=== PATIENT | female | born 1975 | race Caucasian/White ===

== ENCOUNTER 2021-04-12 08:35 | Day surgery (SDC) | payer OTHER ==
[2021-04-12 09:30] VITALS: O2SAT 100
[2021-04-12] MEDS ORDERED: Ringers Lactate 1,000 ML IV ONE (09:37)
[2021-04-12] MEDS ORDERED: CELECOXIB 100 MG CAPSULE ONE (09:47)
[2021-04-12] MEDS ORDERED: ACETAMINOPHEN 500 MG TAB ONE (09:48)
[2021-04-12] MEDS ORDERED: FENTANYL CITR 100 MCG/2 ML ONE (10:27)
[2021-04-12] MEDS ORDERED: LIDOCAINE 2% MPF 5 ML VIAL ONE (10:27)
[2021-04-12] MEDS ORDERED: MIDAZOLAM HCL 2 MG/2 ML INJ ONE (10:27)
[2021-04-12] MEDS ORDERED: propofoL 200 MG/20 ML VIAL IV ONE (10:27)
[2021-04-12] MEDS ORDERED: LIDOCAINE 1% W/EPI 1:100,000 MDV 20 ML VIAL ONE (10:56)
[2021-04-12] MEDS ORDERED: ONDANSETRON 4 MG/2 ML VIAL ONE (10:57)
[2021-04-12] MEDS ORDERED: dexAMETHasone 10 MG/ML VIAL ONE (10:57)
[2021-04-12] MEDS ORDERED: HYDROCODONE/APAP 5/325 MG TAB PO PRN (11:28)
--- NOTE | 2021-04-12 11:34 | P.BOP ---
Preoperative diagnosis: pelvic pain thickened endometrium AUB-L Postoperative diagnosis: same and endometrial polyps Primary procedure: Hysteroscopy polypectomy d/c with myosure lite Assistant Finance Director: NONE,NONE Estimated blood loss: min Specimen: EMC and polyps Findings: thickned polypoid endometrium, polyps x2, deficit 300 NS Anesthesia: General Complications: None Transferred to: Recovery Room Condition: Good
[2021-04-12] MEDS ORDERED: CEFAZOLIN SODIUM 1 GM/VIAL ONE (11:35)
[2021-04-12] MEDS ORDERED: NS 0.9% VIAL 20 ML ONE (11:37)
[2021-04-12] MEDS ORDERED: KETOROLAC 30 MG/ML INJ ONE (11:44)
[2021-04-12 12:35] VITALS: BP 102/63; TEMP 97.7
[2021-04-12] MEDS ORDERED: HYDROCODONE/APAP 5/325 MG TAB ONE (12:36)
--- NOTE | 2021-04-12 13:48 | OP ---
Date of Procedure: 04/12/2021 Surgeon: Vandana Felipe MD Preoperative Diagnoses: Pelvic pain, thickened endometrium, AUB-L. Postoperative Diagnoses: Pelvic pain, thickened endometrium, AUB-L and endometrial polyps. Procedures Performed: Hysteroscopy, polypectomy, dilation and curettage with MyoSure LITE. Anesthesia: General with LMA. Specimens: Endometrial curettings and polyps. Findings: Thickened endometrium with polypoid appearance. Two polyps were removed. The fluid defic it was 300. Normal saline was used for infusion. Complications: No complications. Drains: No drains. Condition: Stable. Indications: The patient is a 46-year-old female with pelvic pain, bleeding, fibroids. Evaluated wi th an ultrasound. Had significantly thickened endometrium with question of possible polyps, so neede d removal and sampling before a definitive plan is made either for an ablation or hysterectomy, so amelia connelly was consented and brought to the hospital. Description Of Procedure: After reconsenting her in the preoperative, taken back to the operating ro om. She was placed in the supine fashion and general anesthesia was given with LMA. The patient was repositioned using Bay stirrups in a dorsal lithotomy position. Vulva, vagina, and perineum were prepped and draped in a sterile fashion. Speculum was placed to expose the cervix. Anterior lip was grasped with 2 Allis clamps. Attempted to enter the cervical canal with the MyoSure scope, however, this was significantly larger for the caliber of the cervix without dilation. The cervix was dilate d to 18 and 20-Puerto Rican. Then was able to pass the scope. After visualizing the cavity and the production assembly supervisor ior wall with thickened endometrium and 2 polyps, the scope was left in the cavity. The suction kenia sanjay was removed and the MyoSure LITE device was inserted. With the set pressure increased to 100 mmH g, proceeded with performing the MyoSure polypectomy with the MyoSure LIGHT and then D and C was perf ormed with the same device as well. All the specimens were in the catchment bag of the device [facility] and they were sent for permanent pathology. All instrument, needle, and sponge counts were cor rect after removing the instruments and counting them. The patient was recovered from anesthesia and taken to PACU in stable condition. Ebl: Minimal. Condition: Stable. Plan: She will follow up with me in 1 week and then we will make a decision on what she wants to pro ceed with for treatment. GENO/ROSEMARY Voice ID: [id number] Report ID: [id number]
== END 2021-04-12 12:35 | disposition home or self-care (01) ==
LOC: OR 08:35
PROVIDERS: ATTEND Obstetrics & Gynecology
PROC: 0UDB7ZX Extraction of Endometrium, Via Natural or Artificial Opening, Diagnostic (ICD-10-PCS; 2021-04-12)
PROC: 0UJD8ZZ Inspection of Uterus and Cervix, Via Natural or Artificial Opening Endoscopic (ICD-10-PCS; 2021-04-12)
PROC: 0UB97ZX Excision of Uterus, Via Natural or Artificial Opening, Diagnostic (ICD-10-PCS; principal; 2021-04-12 11:00)
DX: N84.0 Polyp of corpus uteri (principal); R93.89 Abnormal findings on diagnostic imaging of other specified body structures; R10.2 Pelvic and perineal pain; Z20.822 Contact with and (suspected) exposure to COVID-19
CPT/HCPCS: 81025; 88305; 58558; U0003; J2704; J2250; J3010; J1100; J7120; J2405; J0690

== ENCOUNTER 2021-06-12 06:16 | Day surgery (SDC) | payer OTHER ==
[2021-06-07 13:21] LABS: Absolute Lymphocytes (CBC) 2.2 K/uL (0.7-4.9); Basophils % 0.8 % (0-1.3); Hematocrit 39.3 % (36.0-45.0); Lymphocytes % 26.5 % (15.3-44.8); MPV 7.6 fL (7.6-11.3); RBC Red Blood Cell Count 4.37 M/uL (3.86-4.86)
[2021-06-07 13:28] LABS: Urine Appearance CLEAR (Clear); Urine Bilirubin NEGATIVE (Negative); Urine Blood 1+ (Negative); Urine Color YELLOW (Yellow); Urine Glucose NEGATIVE (Negative); Urine Protein NEGATIVE (Negative); Urine Specific Gravity 1.025 (1.005-1.030); Urine Urobilinogen 0.2 mg/dL (0.2-1.0)
[2021-06-07 13:35] LABS: Urine Microscopic Reflex ORDER UMIC
[2021-06-07 13:44] LABS: Urine RBC <5 /HPF (NONE SEEN)
[2021-06-07 13:45] LABS: Urine Bacteria NONE SEEN /HPF (<20)
[2021-06-12 06:29] LABS: Specific Gravity 1.025 (1.005-1.030)
[2021-06-12] MEDS ORDERED: SCOPOLAMINE HYDROBROMIDE PATCH TD ONE (06:30)
[2021-06-12] MEDS ORDERED: Ringers Lactate 1,000 ML IV ONE ×3 (06:30→09:18)
[2021-06-12] MEDS ORDERED: BUPIVACAINE 0.25% PF 30 ML VIAL ONE (06:51)
[2021-06-12] MEDS ORDERED: FENTANYL CITR 250 MCG/5 ML ONE (07:13)
[2021-06-12] MEDS ORDERED: ROCURONIUM 50 MG/5 ML VIAL IV ONE ×2 (07:14→08:08)
[2021-06-12] MEDS ORDERED: propofoL 200 MG/20 ML VIAL IV ONE (07:14)
[2021-06-12] MEDS ORDERED: GLYCOPYRROLATE 0.2 MG/ML SYR ONE (07:14)
[2021-06-12] MEDS ORDERED: LIDOCAINE 2% MPF 5 ML VIAL ONE (07:15)
[2021-06-12] MEDS ORDERED: MIDAZOLAM HCL 2 MG/2 ML INJ ONE (07:15)
[2021-06-12] MEDS ORDERED: ONDANSETRON 4 MG/2 ML VIAL ONE ×2 (07:19→11:26)
[2021-06-12] MEDS: CEFAZOLIN/SWI 2gm 2 GM/20 ML SYR ONE ×2 (07:30→07:37)
[2021-06-12] MEDS ORDERED: dexAMETHasone 10 MG/ML VIAL ONE (07:55)
[2021-06-12] MEDS ORDERED: KETOROLAC 30 MG/ML INJ ONE (07:55)
[2021-06-12] MEDS ORDERED: NA CHLORIDE 0.9% 1,000 ML ONE (09:25)
[2021-06-12] MEDS ORDERED: Mastisol Adhesive Liq ONE (10:56)
[2021-06-12] MEDS ORDERED: MEPERIDINE HCL 25 MG/ML SYR IM PRN (11:05)
[2021-06-12] MEDS ORDERED: HYDROCODONE/APAP 5/325 MG TAB PO PRN (11:05)
[2021-06-12] MEDS ORDERED: IBUPROFEN 200 MG TAB PO PRN (11:05)
[2021-06-12] MEDS ORDERED: PROMETHAZINE INJ 25 MG/ML AMP IV PRN (11:05)
--- NOTE | 2021-06-12 11:12 | P.BOP ---
Preoperative diagnosis: AUB-L/ dysmenorrhea Postoperative diagnosis: same, bilateral hydrosalpinges Primary procedure: TLH BS vaginal morcellation cystoscopy Forestry Aide: Katelyn Marsh Estimated blood loss: 350 Specimen: uterus tubes Findings: bilateral hydrosalpinges, fibroids to the right and posterior aspect Anesthesia: General Complications: None Fluids & blood products: 2600/ 250 UO Transferred to: Recovery Room Condition: Good
[2021-06-12] MEDS: HYDROMORPHONE HCL 1 MG/ML INJ ONE ×2 (11:25→11:30)
[2021-06-12] MEDS ORDERED: HYDROMORPHONE HCL 1 MG/ML INJ ONE (11:41)
[2021-06-12] MEDS ORDERED: MEPERIDINE HCL 25 MG/ML SYR ONE (11:44)
[2021-06-12] MEDS ORDERED: IBUPROFEN 200 MG TAB PO ONE (12:59)
[2021-06-12 15:37] VITALS: BP 125/54; TEMP 98.3; O2SAT 100
--- NOTE | 2021-06-12 16:12 | OP ---
Date of Procedure: 06/12/2021 Surgeon: Vandana Felipe MD Sheet Rocker: Katelyn Olivier. Preoperative Diagnosis: Menorrhagia, dysmenorrhea. Postoperative Diagnoses: Menorrhagia, dysmenorrhea, and bilateral hydrosalpinges, sigmoid adhesions. Primary Procedures: Total laparoscopic hysterectomy, bilateral salpingectomy, vaginal morcellation, cystoscopy. Anesthesia: General endotracheal. Estimated Blood Loss: 350. Specimen: Uterus and tubes, specimen morcellated. Complications: No complications. Drains: No drains. Condition: Stable. Fluids: In 2600 LR and urine output 250. Findings: Bilateral hydrosalpinges in the proximal parts of the tubes on both sides. Then, the leiomyomata largest in the posterior wall and towards the right and the other on the right, pushing towards the right pelvic sidewall, taking up the broad ligament. Once all the surgery was performed, cystoscopy showed patent bilateral ureters on the right side. The ureter had to be cannulated with a 0.035 Glidewire and once this was advanced to 20 cm without any obstruction it was pulled back and there was a strong jet of urine from here. Indications: The patient is a 46-year-old with heavy bleeding, fibroids, also with pelvic pain, history of cervical dysplasia, went on to be evaluated with a transvaginal ultrasound showed a 7.3 cm and 3 cm leiomyomata. Endometrial tissue was sampled to rule out any dysplasia and there was none. Consented for hysterectomy, bilateral salpingectomy, possible endometriosis excision if needed. Procedure In Detail: Then, she was consented and brought to the hospital. 2 g of Ancef were given. SCDs were placed. Then, I went on to bring the patient back after re-consented in the preoperative area. She was placed in a supine fashion on the operating table. General anesthesia was given. She was placed in a dorsal lithotomy position using Bay stirrups and arms were tucked by the side. Abdomen, vulva, vagina, and perineum were prepped and draped in a sterile fashion. Time-out was done. Ancef was given. Speculum was placed to expose the cervix. Anterior lip grasped with 2 Allis clamps and a large VCare introduced and fixed in place. Sung was placed to drain the bladder and attached for retrograde filling. This area was then draped. A 1 cm infraumbilical incision was made with a scalpel using the open laparoscopy technique. Fascia was incised, tagged with 0 Vicryl sutures. Peritoneum entered sharply. S-retractors were placed. Janet introduced. Site of entry was checked and was unremarkable. Upper abdominal surface was unremarkable. The patient placed in Trendelenburg. There was a large fibroid uterus as described in the findings. A 10 suprapubic and two 5 lateral ports were placed after injecting the lateral ports with 10 cc of 0.25% Marcaine. Then, the patient was placed in Trendelenburg after survey of the peritoneal cavity. No clear evidence of endometriosis. There were lateral adhesions of the sigmoid, but these were left in place as they were helpful to retract the sigmoid to the left. The concern was taking the right vessels and this was in fact tough, so started on the left side. The ligated portion of the mesosalpinx was taken down. The proximal part of the tube was . Then, utero- ovarian ligament, mesosalpinx, round ligament were all taken down. Anterior broad ligament opened up to raise the bladder flap, anteriorly and posteriorly taken down to the level of the uterosacral. Then, broad ligament was taken down to skeletonize the vessels. Then, vessels were cauterized with the bipolar and LigaSure and went on the opposite side. The tube was taken down with LigaSure. Then, utero-ovarian ligament was cauterized. First, the round ligament was taken down. Then, this dissection was performed. Then, anteriorly connected the bladder flap posteriorly taken down to the level of the uterine vessels. The vessels were dissected free from the lateral aspect. The ureter was visualized and the posterior peritoneum dissected close to the uterosacral, so this could be detached and pulled over laterally decreasing the risk of injury. Then, the vesicovaginal space was cleared up with the help of a monopolar hook blade, then dissecting the bladder down. The avascular space came down through the vessels on the right side. Then, vessels were taken down with the help of the LigaSure and bipolar basket tip and once this was done, the uterine vein was partially cut and there was bleeding from the side as there retraction did not show the bleeding. Initially, it was found after attention was directed to the opposite side and started working there. Then as soon as blood was noted in the cul-de-sac, dissection on the left was stopped and came back to the right. Here, I took take care of the vein by cauterizing with the bipolar basket tip. Once this was done, there was excellent hemostasis and the process of the uterosacral attached taking it down. Then, cardinal ligaments were also taken down. I went on the opposite side. The vessels were taken down. Cardinal ligaments were taken down. Monopolar hook blade was used to perform a circumferential colpotomy. Posteriorly, the dissection was done with the LigaSure to detach the uterus as it was very difficult to take the monopolar there due to access issues. After the specimen was pulled out through the vagina partially, I then went down vaginally to morcellate the uterus with a 10 blade using a small Hardeep and Agudelo speculum in the back. Then, once the larger fibroid was extracted, then the rest of the specimen was pulled out. Vaginal occluder was placed. Gloves were changed. We went back laparoscopically. There was excellent hemostasis. Thorough irrigation and suction were performed around the cuff. Two 0 Vicryl sutures were used for angle sutures, tied outside the angle, and then 2-0 V-Loc for 2-layer closures with excellent apposition and hemostasis. On the right side, the remnant of the uterosacral was picked up and reattached to the vaginal cuff as I finished the V-Loc sutures. Then, 2 sutures were taken extra for preventing back sliding. Thorough irrigation and suction were performed. The rest of the tube on the right side was taken out and the distal left tube was also removed and handed out for permanent pathology. Ovaries were intact, well vascularized. Cuff was intact with complete hemostasis. No evidence of electrical, mechanical, or thermal injury to the ureters; however, since there was more dissection on the right side and given the close proximity to the vessels, I decided to do a cystoscopy. The trocars were pulled out and the fascia at the umbilicus was closed with the help of 0 Vicryl sutures tied to each other. They were tied to each other. Then, suprapubic simple 0 Vicryl stitch was placed. All skin incisions closed with 3-0 chromic. We went down vaginally and after taking the Sung out, 17-Spanish sheath, 30- degree lens and normal saline was used for cystoscopy. Excellent visualization of the entire bladder. No evidence of any trauma. Jet of urine from the left side went promptly. On the right side, there was a delay, so I went on to slide a 0.035 mm Glidewire easily to 20 cm. It was pulled back, then we waited and there was a strong jet of urine from the right ureter. So, the bladder was drained after the scope was removed. Instrument, needle, and sponge counts were correct at the end of the case. EBL was 350. Urine output 250 and 2600 LR. Hemodynamically stable. No need for transfusion or type and cross for the patient during the procedure as she was bleeding. This was not found to be necessary as her hemoglobin was 13. GENO/ROSEMARY Voice ID: [id number] Report ID: [id number] MTDD
== END 2021-06-12 15:59 | disposition home or self-care (01) ==
LOC: OR 06:16
PROVIDERS: ATTEND Obstetrics & Gynecology
PROC: 0UT74ZZ Resection of Bilateral Fallopian Tubes, Percutaneous Endoscopic Approach (ICD-10-PCS; 2021-06-12)
PROC: 0UT94ZZ Resection of Uterus, Percutaneous Endoscopic Approach (ICD-10-PCS; principal; 2021-06-12 07:30)
DX: N92.1 Excessive and frequent menstruation with irregular cycle (principal); N94.6 Dysmenorrhea, unspecified; R10.2 Pelvic and perineal pain; N85.00 Endometrial hyperplasia, unspecified; D25.9 Leiomyoma of uterus, unspecified; Z20.822 Contact with and (suspected) exposure to COVID-19
CPT/HCPCS: 85025; 36415; 86900; 86850; 81025; 86901; 88307; 58573; U0002; J2704; J2250; J3010; J1100; J2175; J1170 ×2; J0690; J7120 ×3; J7030; J2405 ×2; 81003; 81015

== ENCOUNTER 2025-05-06 10:32 | Inpatient (IN) | payer OTHER ==
--- OUTSIDE RECORDS SUMMARY | 2025-05-06 10:44 | XMS REPORT | Continuity of Care Document ---
Author Name Unknown Address [address] [place] [address] [address] [place] [address] [facility] Address [address] [facility] [address] [place] [address] Care Team Providers Care Printer Apprentice Name Role Phone Unavailable Unavailable Unavailable Problems Condition Name Condition Details Condition Category Status Onset Date Resolution Date Last Treatment Date Treating Clinician Comments Source Flushing Flushing Problem Active 04-11 00:00: 00 [facility] Menopausal flushing Menopausal Flushing Problem Active 04-11 00:00: 00 [facility] Pelvic and perineal pain Pelvic and Perineal Pain Problem Active 2020-08 0 00:00: 00 [facility] Polyp of corpus uteri Polyp of Corpus Uteri Problem Active 2020-08 0 00:00: 00 [facility] Polymenorr hea Polymenorr hea Problem Active 04-25 00:00: 00 [facility] Excessive menstruati on with irregular cycle Excessive Menstruati on with Irregular Cycle Problem Active 04-25 00:00: 00 [facility] Uterine leiomyoma Uterine Leiomyoma Problem Active 9 00:00: 00 [facility] Endometria l hyperplasi a Endometria l Hyperplasi a Problem Active 8- 00:00: 00 [facility] History of dysplasia of cervix History of Dysplasia of Cervix Problem Active 615 00:00: 00 [facility] Gynecologi c examinatio n Gynecologi c Examinatio n Problem Active 6 00:00: 00 [facility] Gynecologi alma examinatio n abnormal Gynecologi alma Examinatio n Abnormal Problem Active 2015-08 0-25 00:00: 00 [facility] 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 Intraepith elial Neoplasia Grade 1 Problem Active 11-30 00:00: 00 [facility] Abnormal cytologica l finding in specimen from female genital organ Abnormal Cytologica l Finding in Specimen from Female Genital Organ Problem Active 10-24 00:00: 00 [facility] Human papillomav irus deoxyribon ucleic acid detected, high risk on cervical specimen Human Papillomav irus Deoxyribon ucleic Acid Detected, High Risk on Cervical Specimen Problem Active 10-24 00:00: 00 [facility] Low grade squamous intraepith elial lesion on cervical Papanicola ou smear Low Grade Squamous Intraepith elial Lesion on Cervical Papanicola ou Smear Problem Active 10-24 00:00: 00 [facility] Social History Smoking Status Start Date Stop Date Source Never Smoker [facility] Medications Ordered Medication Name Filled Medication Name Start Date Stop Date Current Medication? Ordering Clinician Indication Dosage Frequency Signature (SIG) Comments Components Source Co Q-10 Co Q-10 No Co Q-10 [facility] magnesium magnesium No magnesium [facility] Vital Signs Vital Name Observation Time Observation Value Comments S ource Body Weight 2025-04-11 00:00:00 140 [lb_av] [facility] BP Systolic 2025-04-11 00:00:00 128 mm[Hg] [facility] BMI (Body Mass Index) 2025-04-11 00:00:00 22.6 kg/m2 [facility] BP Diastolic 2025-04-11 00:00:00 82 mm[Hg] [facility] Height 2025-04-11 00:00:00 66 [in_i] [facility] BP Diastolic 2024-03-29 00:00:00 64 mm[Hg] [facility] Body Weight 2024-03-29 00:00:00 133 [lb_av] [facility] BP Systolic 2024-03-29 00:00:00 108 mm[Hg] [facility] Procedures Procedure Date / Time Performed Performing Clinicia n Source Hysterectomy 2021-06-12 00:00:00 [facility] Endometrial Biopsy [facility] Colposcopy [facility] Tubal Ligation [facility] Encounters Start Date/Time End Date/Time Encounter Type Admission Type Attending Clinicians Care Facility Care Department Encounter ID Source 2025-04-11 00:00:00 2025-04-11 00:00:00 FRANK Suazo: [address], [place] [address] , Ph. [facility] - [email or web address]Dinorah rubalcava Benitez* [id number] [facility] 2024-03-29 00:00:00 2024-03-29 00:00:00 FRANK Suazo: [address], [place] [address] , Ph. [facility] - [email or web address]Dinorah rubalcava Benitez* [id number] [facility]
[2025-05-06] MEDS ORDERED: ONDANSETRON 4 MG/2 ML VIAL ONE (11:01)
[2025-05-06] MEDS ORDERED: NA CHLORIDE 0.9% 1,000 ML ONE (11:01)
[2025-05-06] MEDS ORDERED: KETOROLAC 30 MG/ML INJ ONE (11:01)
[2025-05-06 11:07] LABS: Absolute Lymphocytes (CBC) 1.3 K/uL (0.7-4.9); Hematocrit 40.3 % (36.0-45.0); Hemoglobin 13.7 g/dL (12.0-15.0); MCH 29.4 pg (27.0-35.0); MCHC 33.9 g/dL (32.0-36.0); MCV 86.6 fL (80-100); MPV 7.7 fL (7.6-11.3); Nucleated RBC Absolute Count 0.0 (0-0); Nucleated Red Blood Cells % 0.1 % (0-0); RBC Red Blood Cell Count 4.65 M/uL (3.86-4.86); White Blood Count 7.70 thou/uL (4.3-10.9)
[2025-05-06 11:37] LABS: ALT/SGPT 27.0 U/L (13-56); AST/SGOT 11.0 U/L (15-37); Albumin 3.8 g/dL (3.4-5.0); Albumin/Globulin Ratio 1.0 (1.1-1.8); Alkaline Phosphatase 70.0 U/L (45-117); Anion Gap 10.5 mEq/L (5.0-15.0); BUN Blood Urea Nitrogen 14.0 mg/dL (7-18); Globulin 3.8 g/dL (2.3-3.5); Glucose Level 112.0 mg/dL (74-106); Lipase 28.0 U/L (13-75); Potassium 3.5 mEq/L (3.5-5.1)
--- NOTE | 2025-05-06 11:47 | EDPHYS ---
Physician Documentation [facility] Name: Trudy Zeng Age: 50 yrs Sex: Female : 1975 Arrival Date: 05/06/2025 Time: 10:32 Bed 7 Private MD: ED Physician Saeid Morley HPI: 05/06 11:07 This 50 yrs old Female presents to ER via Ambulatory with complaints of Abdominal Pain, sp3 Back Pain. 11:07 50-year-old female with no past medical history presents with sudden onset of right sp3 flank and right side pain approximately 1 hour prior to arrival. Patient denies any vomiting, diarrhea, bleeding, left-sided abdominal pain, chest pain, shortness breath, fever or any other signs or symptoms on ROS at this time. She also denies any dysuria or gross visualized hematuria.. 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 - Infectious Disease History:: Denies. - Social history:: Smoking status: Patient denies any tobacco usage or history of. ROS: 11:08 Constitutional: Negative for fever, chills, and weight loss, Eyes: Negative for injury, sp3 pain, redness, and discharge, ENT: Negative for injury, pain, and discharge, Neck: Negative for injury, pain, and swelling, Cardiovascular: Negative for chest pain, palpitations, and edema, Respiratory: Negative for shortness of breath, cough, wheezing, and pleuritic chest pain, MS/Extremity: Negative for injury and deformity, Skin: Negative for injury, rash, and discoloration, Neuro: Negative for headache, weakness, numbness, tingling, and seizure, Psych: Negative for depression, anxiety, suicide ideation, homicidal ideation, and hallucinations, Allergy/Immunology: Negative for hives, rash, and allergies, Endocrine: Negative for neck swelling, polydipsia, polyuria, polyphagia, and marked weight changes, 11:08 All other systems are negative, Exam: 11:08 Constitutional: This is a well developed, well nourished patient who is awake, alert, sp3 and in no acute distress. Head/Face: Normocephalic, atraumatic. Eyes: Pupils equal round and reactive to light, extra-ocular motions intact. Lids and lashes normal. Conjunctiva and sclera are non-icteric and not injected. Cornea within normal limits. Periorbital areas with no swelling, redness, or edema. Neck: Trachea midline, no thyromegaly or masses palpated, and no cervical lymphadenopathy. Supple, full range of motion without nuchal rigidity, or vertebral point tenderness. No Meningismus. Chest/axilla: Normal chest wall appearance and motion. Nontender with no deformity. No lesions are appreciated. Cardiovascular: Regular rate and rhythm with a normal S1 and S2. No gallops, murmurs, or rubs. Normal PMI, no JVD. No pulse deficits. Respiratory: Lungs have equal breath sounds bilaterally, clear to auscultation and percussion. No rales, rhonchi or wheezes noted. No increased work of breathing, no retractions or nasal flaring. Skin: Warm, dry with normal turgor. Normal color with no rashes, no lesions, and no evidence of cellulitis. MS/ Extremity: Pulses equal, no cyanosis. Neurovascular intact. Full, normal range of motion. Neuro: Awake and alert, GCS 15, oriented to person, place, time, and situation. Cranial nerves II-XII grossly intact. Motor strength 5/5 in all extremities. Sensory grossly intact. Cerebellar exam normal. Normal gait. Psych: Awake, alert, with orientation to person, place and time. Behavior, mood, and affect are within normal limits. 11:08 Abdomen/GI: Mild right lower quadrant abdominal pain to palpation without peritoneal signs, rebound or guarding. Right CVA tenderness noted., Vital Signs: 10:50 BP 141 / 73; Pulse 93; Resp 16; Temp 98.5; Pulse Ox 100% on R/A; Weight 63.5 kg; Height dd2 5 ft. 6 in. ; Pain 5/10; 11:00 BP 126 / 79; Pulse 79; Resp 15; Pulse Ox 98% ; Pain 5/10; jl7 11:43 Pain 0/10; ar8 11:44 Pain 0/10; ar8 12:34 BP 134 / 77; Pulse 80; Resp 15; Pulse Ox 100% ; jl7 10:50 Body Mass Index 22.60 (63.50 kg, 167.64 cm) dd2 10:50 Pain Scale: Adult dd2 11:00 Pain Scale: Adult jl7 11:43 Pain Scale: Adult ar8 11:44 Pain Scale: Adult ar8 MDM: 10:41 Medical Screening Exam initiated sp3 11:09 Data reviewed: vital signs, nurses notes. ED course: 50-year-old female with right sp3 flank pain. Differential diagnosis includes ureterolithiasis/kidney stone spectrum, UTI/pyelonephritis spectrum, appendicitis, colitis, musculoskeletal, among others. We will obtain CT scan of the abdomen pelvis CT stone protocol, UA, general labs and pain and nausea control. Disposition pending workup and patient course.. 11:45 ED course: CT demonstrates early appendicitis. Appendix lies transversely across the sp3 right ureter causing mild hydronephrosis on that side. No stone in the ureter noted. Will start Zosyn and admit patient.. 05/06 10:48 Order name: CBC with Diff; Complete Time: 11:40 sp3 05/06 10:48 Order name: CMP; Complete Time: 11:40 sp3 05/06 10:48 Order name: Lipase; Complete Time: 11:40 sp3 05/06 10:48 Order name: Test, Urine; Complete Time: 11:40 sp3 05/06 11:51 Order name: Basic Metabolic Panel EDMS 05/06 11:51 Order name: Basic Metabolic Panel EDMS 05/06 11:51 Order name: Basic Metabolic Panel EDMS 05/06 11:51 Order name: Basic Metabolic Panel EDMS 05/06 11:51 Order name: CBC with Automated Diff EDMS 05/06 11:51 Order name: CBC with Automated Diff EDMS 05/06 11:51 Order name: CBC with Automated Diff EDMS 05/06 11:51 Order name: CBC with Automated Diff EDMS 05/06 10:48 Order name: CT Abd/Pelvis - Without Contrast; Complete Time: 11:49 sp3 05/06 10:48 Order name: IV Saline Lock; Complete Time: 11:10 sp3 05/06 10:48 Order name: Labs collected and sent; Complete Time: 11:11 sp3 Administered Medications: 11:11 Drug: TORadol - Ketorolac IVP 15 mg IVP once Route: IVP; Site: right antecubital; jl7 11:43 Follow up: Pain 0/10 Adult; Response: No adverse reaction; Pain is decreased ar8 11:11 Drug: Ondansetron IVP 4 mg IVP once; over 2 minutes Route: IVP; Site: right antecubital;jl7 11:43 Follow up: Response: No adverse reaction ar8 11:11 Drug: NS 0.9% IV 1000 ml IV at 1 bolus Per protocol; to be given as a bolus over 60 jl7 minutes Route: IV; Rate: 1 bolus; Site: right antecubital; 12:35 Follow up: Response: No adverse reaction; IV Status: Completed infusion; IV Intake: jl7 1000ml 11:58 Drug: Piperacillin-Tazobactam IVPB 3.375 grams IVPB once over 60 mins; (mix in NS 100 jl7 mL) Route: IVPB; Infused Over: 60 mins; Site: right antecubital; 12:34 Follow up: IV Status: Infusion continued upon admission jl7 Disposition Summary: 05/06/25 11:47 Hospitalization Ordered Notes: Hospitalization Status: Observation sp3 Provider: Nikita Naranjo sp3 Location: Telemetry/MedSurg (observation) sp3 Condition: Stable sp3 Problem: new sp3 Symptoms: have worsened sp3 Bed/Room Type: Standard sp3 Room Assignment: 214(05/06/25 12:13) ap3 Diagnosis - Appendicitis sp3 Forms: - Medication Reconciliation Form sp3 - SBAR form sp3 - Leadership Thank You Letter sp3 Signatures: Dispatcher [employer] Afsaneh Bloom RN RN jl7 Lissa Prado RN RN ap3 Saeid Morley MD MD sp3 ANGEL RAND RN RN dd2 Alejandro Atkinson RN ar8 Corrections: (The following items were deleted from the chart) 12:13 11:47 sp3 ap3
--- NOTE | 2025-05-06 11:47 | ER ---
Nurse's Notes [facility] Name: Trudy Zeng Age: 50 yrs Sex: Female : 1975 Arrival Date: 05/06/2025 Time: 10:32 Bed 7 Private MD: Diagnosis: Appendicitis Presentation: 05/06 10:50 Chief complaint: Patient states: SHE BEGAN HAVING SEVERE RT LOWER BACK PAIN THIS dd2 MORNING, PAIN RADIATES TO RT LOWER STOMACH. PT DENIES VOMITING OR PAINFUL URINATION. Coronavirus screen: At this time, the client does not indicate any symptoms associated with coronavirus-19. Ebola Screen: No symptoms or risks identified at this time. Initial Sepsis Screen: Does the patient meet any 2 criteria? No. Patient's initial sepsis screen is negative. Does the patient have a suspected source of infection? No. Patient's initial sepsis screen is negative. Risk Assessment: Do you want to hurt yourself or someone else? Patient reports no desire to harm self or others. Onset of symptoms was May 06, 2025. 10:50 Method Of Arrival: Ambulatory dd2 10:50 Acuity: LASHAWN 3 dd2 Triage Assessment: 10:52 General: Appears in no apparent distress. uncomfortable, Behavior is calm, cooperative, dd2 appropriate for age. Pain: Complains of pain in right mid back and right low back Pain radiates to anterior aspect of right lateral abdomen and right lower quadrant Pain currently is 5 out of 10 on a pain scale. GI: Reports lower abdominal pain, nausea. : Reports pain in right lower quadrant(s) in lower back. 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 - Infectious Disease History:: Denies. - Social history:: Smoking status: Patient denies any tobacco usage or history of. Screenin:11 [facility] ED Fall Risk Assessment (Adult) History of falling in the last 3 months, jl7 including since admission No falls in past 3 months (0 pts) Confusion or Disorientation No (0 pts) Intoxicated or Sedated No (0 pts) Impaired Gait No (0 pts) Mobility Assist Device Used No (0 pt) Altered Elimination No (0 pt) Score/Fall Risk Level 0 - 2 = Low Risk Oriented to surroundings, Maintained a safe environment. Abuse screen: Denies threats or abuse. Denies injuries from another. Nutritional screening: No deficits noted. Tuberculosis screening: No symptoms or risk factors identified. Assessment: 11:00 General: Appears in no apparent distress. uncomfortable, Behavior is calm, cooperative, jl7 appropriate for age. Pain: Complains of pain in right lower quadrant and right low back Pain currently is 5 out of 10 on a pain scale. Neuro: Leone Agitation-Sedation Scale (RASS): 0 - Alert and Calm Level of Consciousness is awake, alert, obeys commands, Oriented to person, place, time, situation. Cardiovascular: Patient's skin is warm and dry. Respiratory: Airway is patent Respiratory effort is even, unlabored, Respiratory pattern is regular, symmetrical. GI: Abdomen is non-distended, Bowel sounds present X 4 quads. Abd is soft. : Urine is clear. Derm: Skin is pink, warm \T\ dry. 11:43 Reassessment: Patient and/or family updated on plan of care and expected duration. Pain ar8 level reassessed. Patient is alert, oriented x 3, equal unlabored respirations, skin warm/dry/pink. Patient denies pain at this time. Patient states symptoms have improved. 11:59 Reassessment: AARON Patel at bedside assessing pt for admission and discussing POC. jl7 Vital Signs: 10:50 BP 141 / 73; Pulse 93; Resp 16; Temp 98.5; Pulse Ox 100% on R/A; Weight 63.5 kg; Height dd2 5 ft. 6 in. ; Pain 5/10; 11:00 BP 126 / 79; Pulse 79; Resp 15; Pulse Ox 98% ; Pain 5/10; jl7 11:43 Pain 0/10; ar8 11:44 Pain 0/10; ar8 12:34 BP 134 / 77; Pulse 80; Resp 15; Pulse Ox 100% ; jl7 10:50 Body Mass Index 22.60 (63.50 kg, 167.64 cm) dd2 10:50 Pain Scale: Adult dd2 11:00 Pain Scale: Adult jl7 11:43 Pain Scale: Adult ar8 11:44 Pain Scale: Adult ar8 ED Course: 10:33 Patient arrived in ED. mr 10:34 Saeid Morley MD is Attending Physician. sp3 10:52 Triage completed. dd2 10:52 Arm band placed on right wrist. dd2 10:53 Alejandor Atkinson, EDWARD is Primary Nurse. ar8 11:06 CT Abd/Pelvis - Without Contrast In Process Unspecified. EDMS 11:11 Patient has correct armband on for positive identification. Provided Education on: use jl7 of call angela. Warm blanket given. 11:11 No provider procedures requiring assistance completed. Initial lab(s) drawn, by me, jl7 sent to lab. Urine collected: clean catch specimen, clear. Inserted saline lock: 20 gauge in right antecubital area, using aseptic technique. Blood collected. Flushed with 10 mL NS. 11:47 Nikita Naranjo is Hospitalizing Provider. sp3 12:34 Patient admitted, IV remains in place. intact, No redness/swelling at site. jl7 Administered Medications: 11:11 Drug: TORadol - Ketorolac IVP 15 mg IVP once Route: IVP; Site: right antecubital; jl7 11:43 Follow up: Pain 0/10 Adult; Response: No adverse reaction; Pain is decreased ar8 11:11 Drug: Ondansetron IVP 4 mg IVP once; over 2 minutes Route: IVP; Site: right antecubital;jl7 11:43 Follow up: Response: No adverse reaction ar8 11:11 Drug: NS 0.9% IV 1000 ml IV at 1 bolus Per protocol; to be given as a bolus over 60 jl7 minutes Route: IV; Rate: 1 bolus; Site: right antecubital; 12:35 Follow up: Response: No adverse reaction; IV Status: Completed infusion; IV Intake: jl7 1000ml 11:58 Drug: Piperacillin-Tazobactam IVPB 3.375 grams IVPB once over 60 mins; (mix in NS 100 jl7 mL) Route: IVPB; Infused Over: 60 mins; Site: right antecubital; 12:34 Follow up: IV Status: Infusion continued upon admission jl7 Medication: 11:00 VIS not applicable for this client. jl7 Intake: 12:35 IV: 1000ml; Total: 1000ml. jl7 Outcome: 11:47 Decision to Hospitalize by Provider. 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 jl7 Signatures: Dispatcher [employer] EDKY Radha Portillo, Reg Reg mr AragonAfsaneh, RN RN jl7 Saeid Morley MD MD sp3 ANGEL RAND, RN RN dd2 Alejandro Atkinson, RN RN ar8
[2025-05-06] MEDS ORDERED: ONDANSETRON 4 MG/2 ML VIAL IV PRN (11:48)
[2025-05-06] MEDS ORDERED: MORPHINE 2 MG/ML SYR IV PRN (11:48)
--- NOTE | 2025-05-06 11:48 | RAD REPORT ---
EXAMINATION: CT Abdomen Pelvis Wo Contrast CLINICAL INDICATION: Female, 50 years old. Right flank;Abd pain TECHNIQUE: CT abdomen and pelvis was performed, without IV contrast, as per department protocol. Axia l, sagittal and coronal reconstructions were obtained. One or more of the following dose reduction techniques were used: Automated exposure control, adjustment of the mA and kV according to the patien t size, and iterative reconstruction. Unless otherwise specified, incidental findings do not require dedicated imaging follow-up. COMPARISON: No prior exam. FINDINGS: The lack of intravenous contrast limits the sensitivity of this exam for evaluation of solid visceral organs, vascular structures, and retroperitoneum. LOWER CHEST: The visualized lung bases are clear. LIVER: Normal in size and contour. No focal lesion. BILIARY SYSTEM: No suspicious abnormalities. SPLEEN: Normal size. No focal lesion. PANCREAS: No mass, ductal dilation, or supriya-pancreatic fluid. ADRENALS: Normal; no mass. KIDNEYS AND URETERS: Normal size and contour. Moderate right hydroureteronephrosis. Abruptly transiti ons to nondistended ureter at the level of the appendix. No radiopaque calculi. URINARY BLADDER: Normal contour. GASTROINTESTINAL TRACT: No evidence of bowel obstruction, significant free fluid, free air or abscess . APPENDIX: No significant dilation of the transversely oriented appendix terminating across the paraco lic gutter, just caudal to the inferior liver margin. Mild adjacent fat stranding along the mid to distal appendix. No appendicolith. LYMPH NODES: No lymphadenopathy. MUSCULOSKELETAL: No acute or suspicious osseous abnormality. ADDITIONAL FINDINGS: None. IMPRESSION: Minimal fat stranding along the mid to distal retrocecal appendix, without caliber distention. Findin gs could relate to very early appendicitis. Please correlate clinically. Moderate right hydroureteronephrosis. Ureteric caliber abruptly transitions to nondistended ureter at the level of the appendiceal crossing. This could be reactive. THIS REPORT CONTAINS FINDINGS THAT MAY BE CRITICAL TO PATIENT CARE. The findings were verbally commun icated via telephone to Saeid Morley on 05/06/2025 11:43 AM.
[2025-05-06] MEDS ORDERED: PIPERACIL/TAZO 3.375 GM VIAL IV ONE (11:49)
[2025-05-06] MEDS ORDERED: NA CHLORIDE 0.9% 100 ML ONE (11:49)
[2025-05-06] MEDS ORDERED: ROCURONIUM 50 MG/5 ML VIAL IV ONE (12:44)
[2025-05-06] MEDS ORDERED: LIDOCAINE 2% MPF 5 ML VIAL ONE (12:44)
[2025-05-06] MEDS ORDERED: MIDAZOLAM HCL 2 MG/2 ML INJ ONE (12:45)
[2025-05-06] MEDS ORDERED: FENTANYL CITR 100 MCG/2 ML ONE (12:45)
[2025-05-06] MEDS: Ringers Lactate 1,000 ML IV ONE (12:50)
[2025-05-06] MEDS: NA CHLORIDE 0.9% 1,000 ML IV SCH (13:37)
[2025-05-06] MEDS ORDERED: Mastisol Adhesive Liq ONE (14:55)
--- NOTE | 2025-05-06 14:57 | CON ---
Date of Consultation: 05/06/2025 Diagnosis: Acute appendicitis. Also noticed the patient to have hydronephrosis, but partial blockag e of the ureter. History Of Present Illness: This is a case of a 50-year-old patient, who woke up this morning with a bdominal pain right lower quadrant, nausea, bloating. No dysuria, hematuria, hematochezia, melena. No recent traveling out of the country. No family member sick at home. Last colonoscopy was about 1 0 years ago. The patient had imaging, placed in the ER, found to have appendicitis, and a surgical c onsult was obtained. Past Surgical History: Surgeries include hysterectomy about 3 years ago, she still has her ovaries. Allergies: NONE. Past Medical History: Medical problems none. Social History: She does not smoke. She does not drink alcohol. Review of Systems: Ten points otherwise unremarkable. Physical Examination: General: The patient is awake, alert. HEENT: Pupils are equal and reactive. Anicteric. Neck: Supple. Chest: Clear. Heart: S1, S2. Abdomen: Right lower quadrant tenderness with Rovsing sign positive. Breasts: Deferred. Pelvic: Deferred. Rectal: Deferred. Extremities: Good capillary refill. Laboratory Data: Blood work shows WBC count of 7.7, hemoglobin of 13.7, platelets of 340, potassium 3.5, creatinine is 0.83, total bilirubin of 0.3, lipase 28. Urine negative. CAT scan of t he abdomen and pelvis interpreted by Dr. Lubin showing fat stranding along the mid to distal retroce alma appendix. Finding could be related to appendicitis. The patient has moderate right hydrouretero nephrosis. The ureteric caliber abrupt transition to nondistended ureter at the level of the appendi ceal crossing. This could be reactive. Assessment: This is a 50-year-old patient with acute appendicitis. We discussed with her the benefi ts, alternatives, and risks of laparoscopic possible open appendectomy, which include, but not limite d to infection, bleeding, damage to adjacent structures, anesthesia complication, negative appendix, OR, and even . She also understands this may not relieve the symptoms. She might need more travis n one surgical intervention. I also expressed to her and the property coordinator and the primary very clear th at the assumption that this hydroureteronephrosis is just that an assumption, there may be a patholog y on his own, may or may not be related, but I explained to the patient I am not the urologist and I will not be able to see that pathology with this laparoscopy, so I encouraged the primary doctor this admission and 1 outside to clarify this with depression and make sure that we do not have assumption s about that ureter. I hope that by removing the appendix, things get better, but sometimes needs so mething else than that, that include urologist. That being clear, also specified the patient who aft er she gets discharged in the next month or so, she will need a colonoscopy to be done. I am going t o check with her who is the dance entertainer in her case and then proceed accordingly. With those conditions, I believe at this moment, the more life threatening condition will be the appendix, so we are going to proceed with it. ROSALVA Voice ID: [id number] Report ID: [id number]
[2025-05-06] MEDS ORDERED: GLYCOPYRROLATE 0.2 MG/ML SYR ONE (15:15)
[2025-05-06] MEDS ORDERED: NEOSTIGMINE 1 MG/ML -10 ML VIAL ONE (15:15)
--- NOTE | 2025-05-06 15:17 | P.BOP ---
Preoperative diagnosis: acute appendicitis, hydroureteronephrosis Postoperative diagnosis: same Primary procedure: Laparoscopic appendectomy Estimated blood loss: <10cc Specimen: miguel Findings: as above Anesthesia: General Complications: None Transferred to: Recovery Room Condition: Good
[2025-05-06] MEDS ORDERED: HYDROCODONE/APAP 5/325 MG TAB PO PRN (15:19)
--- NOTE | 2025-05-06 15:29 | P.HP ---
Certification for Inpatient Patient admitted to: Observation With expected LOS: <2 Midnights Patient will require the following post-hospital care: None Practitioner: I am a practitioner with admitting privileges, knowledge of patient current condition, hospital course, and medical plan of care. Services: Services provided to patient in accordance with Admission requirements found in Title 42 Section 412.3 of the Code of Federal Regulations Patient History Date of Service: 05/06/25 History of Present Illness: 50-year-old female with no significant past medical history presents emergency department chief complaint of right lower quadrant abdominal pain that started this morning. Patient was evaluated in the emergency department her labs were unremarkable, CT of the abdomen pelvis was performed which showed suspected early acute appendicitis in addition to showing moderate right hydroureteronephrosis. Ureter caliber abruptly transitions to the nondistended ureter at the level of the appendiceal crossing. This could be reactive. Case was discussed with general surgery who plans to take the patient to the operating room for laparoscopic appendectomy. Allergies No Known Allergies Allergy (Verified 06/12/21 08:31) Home Medications: NK [No Home Meds] 04/10/21 - Past Medical/Surgical History -: Thumb surgery -: Hysterectomy -: Tubal ligation Psychosocial/ Personal History: Lives at home with family - Social History Alcohol use: No CD- Drugs: No Caffeine use: Yes Place of Residence: Home Review of Systems 10-point ROS is otherwise unremarkable Gastrointestinal: Nausea, Abdominal Pain Physical Examination - Vital Signs Temperature: 99.1 F Blood Pressure: 134/77 Pulse: 80 Respirations: 15 - Physical Exam General: Alert, In no apparent distress, Oriented x3 HEENT: Atraumatic, PERRLA, EOMI Neck: Supple, 2+ carotid pulse no bruit, No LAD Respiratory: Clear to auscultation bilaterally, Normal air movement Cardiovascular: Regular rate/rhythm, Normal S1 S2 Gastrointestinal: Normal bowel sounds, Tenderness (Mild right lower quadrant abdominal tenderness) Musculoskeletal: No tenderness Integumentary: No rashes Neurological: Normal speech, Normal strength at 5/5 x4 extr, Normal affect - Studies Laboratory Data (last 24 hrs) 05/06/25 05/06/25 10:57 10:57 WBC 7.70 Hgb 13.7 Hct 40.3 Plt Count 340 Sodium 138 Potassium 3.5 BUN 14 Creatinine 0.83 Glucose 112 H Total Bilirubin 0.3 AST 11 L ALT 27 Alkaline Phosphatase 70 Lipase 28 Assessment and Plan - Plan Assessment: Acute appendicitis Moderate right hydroureteronephrosis Plan: Acute appendicitis Now status post laparoscopic appendectomy Continue empiric antibiotics, as needed pain medications and antiemetics General Surgery managing/following Moderate right hydroureteronephrosis No signs of ureteral calculi Possibly reactive as the transition point is near the appendiceal crossing Renal function intact Monitor chemistry daily DVT PPX: SCD Code status: Full code Discharge Plan: Home Plan to discharge in: 24 Hours - Advance Directives Does patient have a Living Will: No Does patient have a Durable POA for Healthcare: No - Code Status/Comfort Care Code Status Assessed: Yes (Full code) Critical Care: No Time Spent Managing Pts Care (In Minutes): 65
[2025-05-06 16:03] VITALS: BMI 22.6
[2025-05-06] MEDS: PIPER TAZO 3.375 GM in NA CHLORIDE 0.9% 100 ML IV SCH (16:37)
--- NOTE | 2025-05-06 22:02 | OP ---
Date of Procedure: 05/06/2025 Surgeon: Johan Hasasn MD Preoperative Diagnoses: Acute appendicitis, hydroureteronephrosis. Postoperative Diagnoses: Acute appendicitis, hydroureteronephrosis. Procedure: Laparoscopic appendectomy. Estimated Blood Loss: Less than 10 cc. Specimen: Appendix. Findings: Acute retrocecal appendicitis. Anesthesia: General plus local. Indications: This is the case of a female, who had to come to the OR due to acute appendicitis. Dur ing the process, they also found to have some hydronephrosis with some distention of the ureters that medical doctors believe it might be associated with the appendicitis. I explained to everybody that I am here to remove the appendix, but to get more information about that, they have to check with [facility] urologist. The benefits, alternatives, and risks of laparoscopic possible open appendectomy full y explained, which include, but not limited to, infection, bleeding, damage to adjacent structures, a nesthesia complication, negative appendix, CT, and even . She also understands this may not rel ieve any symptoms, she might need more than one surgical intervention. She signed a consent. Description Of Procedure: The patient was brought to the operating room, placed in supine position. Anesthesia was induced without complication. Abdominal area was prepped and draped in a sterile fas hion. Local anesthesia was applied followed by sharp incision of the skin in the supraumbilical fawn on. Incision was carried down to fascia, which was opened under direct vision. Peritoneum was encou ntered, opened under direct vision. Vicryl #1 placed inside of the fascia. Janet trocar was carefu lly introduced. Pneumoperitoneum was obtained. I placed 2 more trocars, 5 mm each one of them in th e suprapubic and left lower quadrant under direct visualization. This allowed me to put a grasper on the area of the mesoappendix. We noticed the appendix to be going down where they were getting infl bree retrocecal. We were able to evaristo that appendix all the way down and in the whole process I got the mesoappendix with the LigaSure right at the area of the appendix not to interfere with the urete rs. Ureters were protected at all time. I did not see the ureter coming through the retroperitoneum or attached to the appendix at this moment. Once we took the mesoappendix right at the appendix are a with the LigaSure, we were able to get the base of appendix transected with an Endo-VALERIO 45 mm nonva scular and then further hemostasis with the hemoclips on the base of the appendix. The ureters were protected at all time. Appendix was removed from the abdominal cavity using an EndoCatch through umb ilical incision. The area was inspected once again. No bleeding. No bowel leak. At that moment, I proceeded to remove the trocars under direct vision. Deflated the pneumoperitoneum. Closed the fas fina with #1 Vicryl, irrigated subcutaneous tissue, closed that with Monocryl and then the skin with s taples. Sponge counts and instrument counts were correct. The patient tolerated the procedure well. The patient on her way to recovery in stable condition. WILLIAM/ROSEMARY Voice ID: [id number] Report ID: [id number]
[2025-05-07 05:16] LABS: Absolute Lymphocytes (CBC) 1.0 K/uL (0.7-4.9); Hematocrit 32.9 % (36.0-45.0); Hemoglobin 10.9 g/dL (12.0-15.0); MCH 29.2 pg (27.0-35.0); MCHC 33.3 g/dL (32.0-36.0); MCV 87.6 fL (80-100); MPV 8.2 fL (7.6-11.3); Nucleated RBC Absolute Count 0.0 (0-0); Nucleated Red Blood Cells % 0.0 % (0-0); RBC Red Blood Cell Count 3.75 M/uL (3.86-4.86); White Blood Count 14.10 thou/uL (4.3-10.9)
[2025-05-07 05:36] LABS: Anion Gap 8.7 mEq/L (5.0-15.0); BUN Blood Urea Nitrogen 7.0 mg/dL (7-18); Glucose Level 117.0 mg/dL (74-106); Potassium 3.7 mEq/L (3.5-5.1)
[2025-05-07] MEDS: POTASSIUM CL SA 10 MEQ TAB PO ONE (08:42)
--- NOTE | 2025-05-07 09:25 | P.PN ---
Date of Service: 05/07/25 Subjective: No acute events overnight Doing well postoperatively Plan to keep overnight for repeat CT tomorrow to reevaluate moderate right hydroureteronephrosis ROS: 10 point ROS as noted above, otherwise negative Physical exam GEN: Alert, oriented, NAD HEENT: Normal conjunctiva, sclera anicteric CV: Regular rate and rhythm, no edema Pulm: Nonlabored respirations on room air ABD: Soft, nontender, nondistended MSK: No joint tenderness Integumentary: No rashes Neuro: Normal speech, normal affect Vitals reviewed Assessment: Acute appendicitis S/P laparoscopic appendectomy 05/07 Moderate right hydroureteronephrosis Plan: Acute appendicitis S/P laparoscopic appendectomy 05/07 Now status post laparoscopic appendectomy Continue empiric antibiotics, as needed pain medications and antiemetics Passing gas, tolerating diet Moderate right hydroureteronephrosis No signs of ureteral calculi Possibly reactive as the transition point is near the appendiceal crossing Renal function intact Monitor chemistry daily Plan for repeat CT tomorrow 05/08 to reevaluate DVT PPX: SCD Code status: Full code Discharge Plan: Home Plan to discharge in: 24 Hours Time Spent Managing Pts Care (In Minutes): 35
--- NOTE | 2025-05-07 18:17 | PN ---
Ms. Zeng is a 50-year-old patient with 2 different problems. One of them is appendicitis, the ot her one is hydronephrosis. Yesterday, we took her for appendectomy, it is a retrocecal appendix, so the cecum had to be mobilized. Still I cannot obviously because of the location, visualize the urete r completely. The appendix was near the area of the ureter. We removed the appendix without injurin g the ureter, but even though she is better from that point. I explained to the medical doctor they have to continue the workup for the ureter and they understand she will have a CAT scan tomorrow with renal protocol. Maybe like the radiologists state, could be just a reactive one, but it is not my s pecialty to get that assumption. From our standpoint, abdomen is benign. She is tolerating diet, so whenever she is cleared from the renal standpoint, then it is good for us to send her home with no h eavy lifting. Follow up in my office in 1 week and she understands. WILLIAM/ROSEMARY Voice ID: [id number] Report ID: [id number]
[2025-05-07 22:04] VITALS: O2SAT 97
[2025-05-08 04:22] LABS: Urine Microscopic Reflex YN NO UMIC
[2025-05-08 05:28] LABS: Absolute Lymphocytes (CBC) 1.3 K/uL (0.7-4.9); Hematocrit 31.8 % (36.0-45.0); Hemoglobin 11.3 g/dL (12.0-15.0); MCH 30.9 pg (27.0-35.0); MCHC 35.5 g/dL (32.0-36.0); MCV 86.9 fL (80-100); MPV 7.8 fL (7.6-11.3); Nucleated RBC Absolute Count 0.0 (0-0); Nucleated Red Blood Cells % 0.0 % (0-0); RBC Red Blood Cell Count 3.66 M/uL (3.86-4.86); White Blood Count 7.60 thou/uL (4.3-10.9)
[2025-05-08 05:53] LABS: Anion Gap 6.9 mEq/L (5.0-15.0); BUN Blood Urea Nitrogen 7.0 mg/dL (7-18); Glucose Level 108.0 mg/dL (74-106); Potassium 3.9 mEq/L (3.5-5.1)
--- NOTE | 2025-05-08 07:52 | RAD REPORT ---
EXAMINATION: Abdomen Pelvis Wo Contrast CLINICAL INDICATION: Female, 50 years old.Eval right hydroureteronephrosis TECHNIQUE: CT abdomen and pelvis was performed, without IV contrast, as per department protocol. Axia l, sagittal and coronal reconstructions were obtained. One or more of the following dose reduction techniques were used: Automated exposure control, adjustment of the mA and/or kV according to the pat ient size, and/or iterative reconstruction. Unless otherwise specified, incidental findings do not require dedicated imaging follow-up. [id number]. IV CONTRAST: Not administered. COMPARISON: 05/06/25 FINDINGS: The lack of intravenous contrast limits the sensitivity of this exam for evaluation of solid visceral organs, vascular structures, and retroperitoneum. LOWER CHEST: Small bilateral pleural effusions. No significant pericardial effusion. UPPER GI: No significant abnormality. LIVER: Benign appearing low density liver lesions. No suspicious mass. GALLBLADDER/BILE DUCTS: No biliary ductal dilatation.? PANCREAS: No mass, ductal dilation, or supriya-pancreatic fluid. SPLEEN: Unremarkable. ADRENALS: No adrenal masses. KIDNEYS AND URETERS: Mild right-sided hydroureteronephrosis similar to yesterday. The right ureter is decompressed beyond the surgical clips from the appendectomy. This was similar to the CT from 05/06/2025 Low density and/or too small to characterize renal lesions which are statistically benign. No renal calculi. ABDOMINAL AORTA AND OTHER VESSELS: Normal caliber aorta and IVC. PERITONEUM: Nonspecific free fluid. Small volume of intra-abdominal free air. LYMPH NODES: No pathologic lymphadenopathy. ABDOMINAL WALL: Unremarkable SMALL BOWEL/COLON: Small bowel has normal course and caliber. No colonic wall thickening or pericolon ic inflammatory changes. Appendectomy. URINARY BLADDER: Underdistended but grossly unremarkable. REPRODUCTIVE ORGANS: 2.5 cm left adnexal cyst is unchanged. MUSCULOSKELETAL: No acute or suspicious osseous abnormality. ADDITIONAL FINDINGS: None. IMPRESSION: Interval appendectomy. Similar mild right-sided hydroureteronephrosis with transition to nondilated u reter at a similar location to 05/06/2025. This was where the ureter came into close proximity to the appendix on the prior CT, and now the appendectomy clips on this CT. The chronicity of the right- sided hydronephrosis is uncertain. This may have predated the recent episode of acute appendicitis. The hydronephrosis is certainly not worsened. Suggest correlating with renal function. Could consider a short-term follow-up renal ultrasound to reassess the hydronephrosis assuming renal function is stable.
[2025-05-08] MEDS: POTASSIUM CL SA 10 MEQ TAB PO ONE (08:09)
--- NOTE | 2025-05-08 09:27 | P.DS ---
Admission Date: 05/07/25 Discharge Date: 05/08/25 Disposition: ROUTINE DISCHARGE Discharge Condition: GOOD Brief History of Present Illness: 50-year-old female with no significant past medical history presents emergency department chief complaint of right lower quadrant abdominal pain that started this morning. Patient was evaluated in the emergency department her labs were unremarkable, CT of the abdomen pelvis was performed which showed suspected early acute appendicitis in addition to showing moderate right hydroureteronephrosis. Ureter caliber abruptly transitions to the nondistended ureter at the level of the appendiceal crossing. This could be reactive. Case was discussed with general surgery who plans to take the patient to the operating room for laparoscopic appendectomy. Hospital Course: Assessment: Acute appendicitis S/P laparoscopic appendectomy Moderate right hydroureteronephrosis Patient was admitted to hospital for appendicitis. Patient went laparoscopic appendectomy on 05/06 and has done well postoperatively. In that regard she stable for discharge and outpatient follow-up with general surgery in 1 week. Of note on her CT on admission there was noted to moderate right hydroureteronephrosis. The ureter caliber abruptly transitions to nondistended ureter at the level of the appendiceal crossing. This could be reactive. Renal function was normal and remained intact throughout hospitalization Repeat CT was performed 48 hours, this morning which shows interval appendectomy. Similar mild right-sided hydroureteronephrosis with transition to nondilated ureter at a similar location to previous CT. The chronicity of the right-sided hydronephrosis is uncertain. This may have predated the recent episode of acute appendicitis. It has not worsened. Discussed these findings with patient, given the fact that the renal function has remained stable recommend outpatient repeat CT abdomen and pelvis without contrast in 2 weeks. Follow-up with general surgery 1 week Follow-up with PCP in 1 to 2 weeks Vital Signs/Physical Exam: Temp Pulse Resp BP Pulse Ox 98.1 F 76 16 106/55 L 98 05/08/25 08:00 05/08/25 08:00 05/08/25 08:00 05/08/25 08:00 05/08/25 08:00 General: Alert, In no apparent distress, Oriented x3 HEENT: Atraumatic, PERRLA Neck: Supple, JVD not distended Respiratory: Clear to auscultation bilaterally, Normal air movement Cardiovascular: Regular rate/rhythm, Normal S1 S2 Gastrointestinal: Normal bowel sounds, No tenderness Musculoskeletal: No tenderness Integumentary: No rashes Neurological: Normal speech, Normal affect Laboratory Data at Discharge: WBC 7.60 thou/uL (4.3-10.9) 05/08/25 05:18 Hgb 11.3 g/dL (12.0-15.0) L 05/08/25 05:18 Hct 31.8 % (36.0-45.0) L 05/08/25 05:18 Plt Count 272 thou/uL (152-406) 05/08/25 05:18 Sodium 139 mEq/L (136-145) 05/08/25 05:18 Potassium 3.9 mEq/L (3.5-5.1) 05/08/25 05:18 BUN 7 mg/dL (7-18) 05/08/25 05:18 Creatinine 0.64 mg/dL (0.55-1.02) 05/08/25 05:18 Glucose 108 mg/dL (74-106) H 05/08/25 05:18 Total Bilirubin 0.3 mg/dL (0.2-1.0) 05/06/25 10:57 AST 11 U/L (15-37) L 05/06/25 10:57 ALT 27 U/L (13-56) 05/06/25 10:57 Alkaline Phosphatase 70 U/L (45-117) 05/06/25 10:57 Lipase 28 U/L (13-75) 05/06/25 10:57 Home Medications: Magnesium Oxide 400 mg PO DAILY 05/06/25 Ubidecarenone [Co Q-10] 100 mg PO DAILY 05/06/25 Amox/Clavulanate [Augmentin 875-125 Tab] 875 mg PO BID 5 Days #10 tab 05/08/25 New Medications: Amox/Clavulanate [Augmentin 875-125 Tab] 875 mg PO BID 5 Days #10 tab Physician Discharge Instructions: Patient was admitted to hospital for appendicitis. Patient went laparoscopic appendectomy on 05/06 and has done well postoperatively. In that regard she stable for discharge and outpatient follow-up with general surgery in 1 week. Of note on her CT on admission there was noted to moderate right hydroureteronephrosis. The ureter caliber abruptly transitions to nondistended ureter at the level of the appendiceal crossing. This could be reactive. Renal function was normal and remained intact throughout hospitalization Repeat CT was performed 48 hours, this morning which shows interval appendectomy. Similar mild right-sided hydroureteronephrosis with transition to nondilated ureter at a similar location to previous CT. The chronicity of the right-sided hydronephrosis is uncertain. This may have predated the recent episode of acute appendicitis. It has not worsened. Discussed these findings with patient, given the fact that the renal function has remained stable recommend outpatient repeat CT abdomen and pelvis without contrast in 2 weeks. Follow-up with general surgery 1 week Follow-up with PCP in 1 to 2 weeks Diet: Regular Activity: Ad adia Followup: Johan Hassan MD [ACTIVE - CAN ADMIT] - 1-2 Weeks ALDO CARLSON [Primary Care Provider] - 1-2 Weeks Mookie Randle [ACTIVE - CAN ADMIT] - 1-2 Weeks Time spent managing pt's care (in minutes): 35
[2025-05-08 12:18] VITALS: BP 116/60; TEMP 97.8
== END 2025-05-08 12:43 | disposition home or self-care (01) | DRG 398 ==
LOC: ER 10:32 → ERHOLD 11:48 → 2ND 12:24 → OBSVTOIN 05-07 08:51
PROVIDERS: ADMIT Internal Medicine; ATTEND Internal Medicine
PROC: 0DTJ4ZZ Resection of Appendix, Percutaneous Endoscopic Approach (ICD-10-PCS; principal; 2025-05-06 13:45)
DX: K35.80 Unspecified acute appendicitis (principal); N13.30 Unspecified hydronephrosis; Z90.710 Acquired absence of both cervix and uterus
CPT/HCPCS: 36415; 74176; 80048; 80053; 81003; 81025; 83690; 85025; 88304; 94010; 96361; 96365; 96375; 99285; G0378; J1100; J1885; J2003; J2250; J2270; J2405; J2543; J2704; J2710; J3010; J7030; J7120